=== PATIENT | male | born 1980 | race Caucasian/White ===

== ENCOUNTER → 2017-08-24 10:00 | Outpatient (CLI) | payer OTHER, SELFPAY ==
--- NOTE | 2017-08-24 10:10 | XR_ITS ---
XR elbow RT 2V HISTORY: ITS.REASON: PAIN/SWELLING ORDERING PHYSICIAN: Eloise Sykes PATIENT AGE: 37 years COMPARISON: None FINDINGS: BONY STRUCTURES: No fracture or dislocation. No lytic or blastic change. Normal mineralization. SOFT TISSUES: Unremarkable. No radio opaque foreign bodies. No displaced fat pad. JOINT SPACE: Well-preserved. No significant arthritic changes evident. IMPRESSION: Negative elbow.
--- NOTE | 2017-08-24 10:10 | XR_ITS ---
XR humerus RT CLINICAL INDICATION: ITS.REASON: PAIN/SWELLING ORDERING PHYSICIAN: Eloise Sykes PATIENT AGE: 37 years COMPARISON: None FINDINGS: No bony or joint abnormality IMPRESSION: Negative right humerus
--- NOTE | 2017-08-24 10:10 | XR_ITS ---
XR shoulder RT min 2V HISTORY: ITS.REASON: PAIN/SWELLING ORDERING PHYSICIAN: Eloise Sykes PATIENT AGE: 37 years COMPARISON: None FINDINGS: No fracture or dislocation. No lytic or blastic change. There is normal mineralization. The joint spaces are well-preserved. No significant degenerative/arthritic changes. No erosive changes evident. IMPRESSION: Negative, no acute finding
== END ==
PROVIDERS: PCP Physician Assistant; Visit Provider Physician Assistant
DX: M25.511 Pain in right shoulder (principal); M79.621 Pain in right upper arm; M25.521 Pain in right elbow
CPT/HCPCS: 73030; 73060; 73070

== ENCOUNTER → 2017-08-27 08:52 | Outpatient (POV) | payer OTHER, SELFPAY | PROVIDERS: Family Provider Emergency Medicine; PCP Physician Assistant; Visit Provider Specialist | DX: G58.9 Mononeuropathy, unspecified (principal); M79.641 Pain in right hand | CPT/HCPCS: 95886; 95908 ==

== ENCOUNTER → 2019-10-29 10:33 | Outpatient (CLI) | payer OTHER, SELFPAY ==
[2019-10-29 11:41] LABS: Basophils # 0.1 K/mm3 (0-0.2); Basophils % 1.1 % (0.1-2.0); Eosinophils # 0.3 K/mm3 (0.0-0.4); Eosinophils % 4.4 % (0.1-12.0); Hematocrit 45.8 % (42.0-52.0); Hemoglobin 16.1 g/dL (14.1-18.0); Lymphocytes # 1.6 K/mm3 (0.7-4.5); Lymphocytes % 21.4 % (10-50); Mean Corpuscular HGB Conc 35.1 g/dL (31.8-35.4); Mean Corpuscular Hemoglobin 30.7 pg (27.0-31.2); Mean Corpuscular Volume 87.5 fl (80-94); Mean Platelet Volume 7.2 fl (7.4-10.4); Monocytes # 0.4 K/mm3 (0.1-1.0); Monocytes % 5.8 % (1.7-9.3); Neutrophils # 4.9 K/mm3 (1.8-7.8); Neutrophils % 67.2 % (37.0-80.0); Platelet Count 296 K/mm3 (142-424); Red Blood Count 5.23 M/mm3 (4.60-6.20); Red Cell Distribution Width 12.4 % (11.5-17.5); White Blood Count 7.3 K/mm3 (4.8-10.8)
[2019-10-29 13:35] LABS: Chloride 99 mmol/L (98-107); Potassium 4.3 mmoL/L (3.5-5.1); Sodium 136 mmol/L (136-145)
[2019-10-29 13:37] LABS: Coronavirus 19 IgG Antibody Negative (Negative); Coronavirus 19 IgM Antibody Negative (Negative)
[2019-10-29 13:38] LABS: Anion Gap 11.3 mEq/L (5-15); Blood Urea Nitrogen 15 mg/dl (9-20); Calcium 9.6 mg/dl (8.4-10.2); Carbon Dioxide 30 mmol/L (22.0-30.0); Estimated Glomerular Filt Rate 94 ml/min (>60); GFR (African American) 114 ML/MIN (>60); Glucose 70 mg/dl (74-100)
== END ==
PROVIDERS: Visit Provider Surgery
DX: Z01.818 Encounter for other preprocedural examination (principal); M70.50 Other bursitis of knee, unspecified knee
CPT/HCPCS: 36415; 80048; 85025; 86328

== ENCOUNTER 2019-10-31 06:08 | Day surgery (SDC) | payer OTHER, SELFPAY ==
[2019-10-30 08:11] VITALS: BMI 24.4
[2019-10-31] VITALS (9 sets, daily range): BP systolic 107–116; BP diastolic 64–88; PULSE 54–74; RESP 14–18; TEMP 36.3–36.8; O2SAT 97–99
--- NOTE | 2019-10-31 06:41 | HMH.ANESCL ---
[facility] Anesthesia Checklist - Structural Data Admitted From: Home Planned Operative Procedure/s: excision bursa knee Consent for Planned Operative Procedure(s) Verified: Yes - Additional verifications Anesthesia Reactions: No Hx Blood Transfusions: No Blood Transfusion Reaction: No - Airway Assessment C-Spine Mobility Assessed: Yes TMJ Mobility Assessed: Yes Dentition: Good Dentition - Neurological Assessment Level of Consciousness: Awake, Alert, Appropriate - Anesthesia Plan Anesthesia Risk discussed: Yes Anesthesia Plan: Verified ASA Class: II Anesthesia Type: General [facility] History I have reviewed the patient's past medical history: Yes Medical History: Reports:: Asthma, MRSA Denies:: Cancer, Diabetes Mellitus Type 1, Diabetes Mellitus Type 2, Internal Pacemaker, Seizures *Have you ever received a pneumonia vaccine?: No *Have you received a flu vaccine this season?: No Other Medical History: Denies: Blood Transfusion Reaction Anesthesia experience/problems:: none Laterality Cases: Bilateral: Tonsillectomy Other Surgeries: No: Pacemaker Amputation: No Fractures: No - *Social History Educational Level: Completed High School Smoking Status: Never smoker Alcohol Intake: never Substance Use Type: denies use *Occupational Status:: employed Housing: house Household Members: spouse, family *Travel in the last 8 weeks: None Family Hx:: No significant family history
--- NOTE | 2019-10-31 07:47 | P.OP_ITS ---
Date of procedure: 10/31/19 Pre-op Diagnosis:: Right infrapatellar bursitis Post-op Diagnosis:: Same Procedure performed:: Excision of right infrapatellar bursa Surgeon:: Modesto Williamson MD CONSTRUCTION MANAGEMENT INSTRUCTOR:: Charlie Zaidi Anesthesia: LMA Estimated blood loss (mL): 10 Operative findings:: Inflammatory changes with no sign of spreading cellulitis or purulence Operative note:: After informed consent was obtained the patient was taken to the operating room and placed in the supine position. General anesthesia with laryngeal mask airw ay was achieved. His right mid leg was prepped and draped in a sterile fashion. After infiltration local anesthetic an elliptical incision was made around the right infrapatellar bursa. A combination of scalpel and electrocautery was utilized to dissect through the deeper tissue. The bursa was excised and passed off for pathologic evaluation. Electrocautery was utilized to achieve hemostasis and also elevate lateral/medial tissue flaps. The skin was then reapproximated with interrupted 4-0 nylon. Dressings were applied and the patient was transferred to recovery in stable condition after removal of his laryngeal mask airway. Condition: stable Disposition: PACU Specimens:: Right infrapatellar bursa Complications:: No immediate
--- NOTE | 2019-10-31 07:54 | P.PN_ITS ---
[facility] Anesthesia Record Part I Intake, IV Amount: 600 Estimated blood loss (mL): 10 Urine output (mL): 0 (NM) Blood Products used (#): none Blood Pressure: 112/88 SaO2: 98 Pulse Rate: 63 Respiratory Rate: 14 Temperature: 97.6 F Patient is:: Awake, Drowsy, Stable Stable to PACU at:: 07:51
--- NOTE | 2019-10-31 08:24 | PC.NURSE ---
0818-detailed report called to ADITI Lynch 0821-pt transported to post op via stretcher w/conchita rails up and left in care of ADITI Lynch with bed locked in lowest position, vss, pt stable
--- NOTE | 2019-10-31 14:38 | HMH.ANESII ---
[facility] Anesthesia Record Part II Discharge Time: 08:21 Destination: Surgical Day Care (OP Surgery) PACU nurse assessment reviewed?: Yes Patient Condition:: Good Anesthesia Complications:: None Swallowing reflex intact?: Yes Cyanosis?: No Blood Pressure: 107/71 Pulse Rate: 61 Temperature: 97.4 F Mental Status: Alert & Oriented Pain level:: 0 Nausea and/or vomitting:: None Intake, IV Amount: 0
== END 2019-10-31 08:54 | disposition home or self-care (01) ==
LOC: OR 06:09
PROVIDERS: PCP Nurse Practitioner Family; Visit Provider Surgery
PROC: (CPT 27340; principal; 2019-10-31 07:30)
DX: M70.51 Other bursitis of knee, right knee (principal); J45.909 Unspecified asthma, uncomplicated; Z83.3 Family history of diabetes mellitus; Z80.9 Family history of malignant neoplasm, unspecified; Z91.013 Allergy to seafood
CPT/HCPCS: 27340; 96374; J2405